=== PATIENT | male | born 1960 | race Caucasian/White ===

== ENCOUNTER 2023-10-07 08:31 | Outpatient (CLI) | payer MEDICARE, SELFPAY | END 2023-10-07 08:32 | disposition home or self-care (01) | LOC: NFLDREF 10-08 11:07 | PROVIDERS: PCP Family Medicine; Referring Provider Family Medicine; Visit Provider Family Medicine | DX: Z00.00 Encounter for general adult medical examination without abnormal findings (principal); E78.5 Hyperlipidemia, unspecified; Z12.5 Encounter for screening for malignant neoplasm of prostate; R53.83 Other fatigue | CPT/HCPCS: 80053; 80061; G0103 ==

== ENCOUNTER 2024-01-20 10:40 | Outpatient (CLI) | payer MEDICARE, SELFPAY ==
--- OUTSIDE RECORDS SUMMARY | 2024-01-20 10:43 | XMS_ITS | Clinical Summary ---
Author Name Unknown Organization [facility] Address [address] [place] [address] Care Team Providers Care Certified Retinal Angiographer Name Role Phone Unavailable Primary Care Provider Unavailabl e Source Comments Patient records contain information from all sites at [facility]. For routine questions regarding patient records, call [phone] during business hours, M-F 8:00 AM - 5:00 PM Central Time. Record requests for emergency care only can be directed to [phone] at any time.[facility] Allergies No known active allergies Medications Medication Sig Dispensed Refills Start Date End Date Status simvastatin (ZOCOR) 40 mg tablet Take 40 mg by mouth daily. 07/19/2016 Active triamterene (DYRENIUM) 100 mg capsule Take 100 mg by mouth daily. 07/19/2016 Active zolpidem (AMBIEN) 10 mg tablet 0.5 tablet (5mg) at bedtime 45 tablet 1 01/14/2019 Active Active Problems Problem Noted Date Diagnosed Date Meniere's Disease Bilateral 12/07/2018 Apnea Sleep Obstructive 12/07/2018 Family History Medical History Relation Name Comments Cataracts Mother Relation Name Status Comments Mother Social History Tobacco Use Types Packs/Day Years Used Date Smoking Tobacco: Former Cigarettes Q uit: 01/13/1994 Smokeless Tobacco: Never Comments:Quit 35 years ago Nutrition Answer Date Recorded Nutrition: EVOO Fat Source Unknown 12/07 Nutrition: Servings of Fruits/Vegetables per Day Not on file 12/07/2020 Dental Answer Date Recorded Dental: Regular Dentist Unknown 12/08/19 21 Sex and Gender Information Value Date Recorded Sex Assigned at Male 01/09/2019 5:11 AM CDT Gender Identity Male 01/09/2019 5:11 AM CDT Sexual Orientation Straight 01/09/2019 5: 11 AM CDT Last Filed Vital Signs Vital Sign Reading Time Taken Comments Blood Pressure 140/62 01/13/2019 3:49 PM CDT Pulse 63 01/13/2019 3:49 PM CDT Temperature - - Respiratory Rate - - Oxygen Saturation - - Inhaled Oxygen Concentration - - Weight 96.6 kg (212 lb 15.4 oz) 01/13/2019 3:49 PM CDT shoes on Height 174.9 cm (5' 8.86) 01/13/2019 3:49 PM CD T shoes on Body Mass Index 31.58 01/13/2019 3:49 PM CDT Plan of Treatment Health Maintenance Due Date Last Done Comments Abdominal Aortic Aneurysm (A AA) Screen 1958 CT Colonography 1958 Cologuard 1958 Colonoscopy 1958 Colorectal Cancer Screening 1958 FIT 1958 Fasting Glucose for Diabetes Screening 1960 HIV Screening 1958 Hepatitis C Screening 1958 Zoster Vaccines (2 of 3) 10/16/2015 08/21/2015 Depression Screening (Annual PHQ-2) 10/06/2023 Fall Risk Screen (Annual) 2023 Pneumococcal vaccine (65+ ye ars) (1 of 1 - PCV) 2023 DTaP,Tdap,and Td Vaccines (3 - Td or Tdap) 03/23/2030 03/23/2020, 12/17/2010 COVID-19 Vaccine Completed 10/09/2023, 09/2022, 11/09/2021, Additional history exists Influenza Vaccine Completed 10/09/2023, , 07/19/2021, Additional history exists
--- OUTSIDE RECORDS SUMMARY | 2024-01-20 10:43 | XMS_ITS ---
Author Name Unknown Organization [facility] Address [address] [place] [address] Care Team Providers Care Pack Out Operator Name Role Phone Unavailable Unavailable Unavailable Surgery Details Not on file Complications Check Surgery Details section. Procedure Estimated Blood Loss Check Surgery Details section. Procedure Findings Check Surgery Details section. Procedure Specimens Taken Check Surgery Details section.
--- OUTSIDE RECORDS SUMMARY | 2024-01-20 10:43 | XMS_ITS | Clinical Summary ---
Author Name Unknown Organization [facility] Address [place], [place] [address] Care Team Providers Care Thermometer Tester Name Role Phone Adalberto Hartley MD Primary Care Provider [phone] Allergies No known active allergies Medications Medication Sig Dispensed Refills Start Date End Date Status triamterene (DYRENIUM) 100 mg capsule Take 1 capsule by mouth 2 times daily. 0 07/19/2016 Active simvastatin (ZOCOR) 40 mg tablet Take 1 tablet by mouth at bedtime. 0 07/19/2016 Active aspirin chewable 81 mg chewable tablet Take 1 tablet by mouth once daily with a meal. 0 07/19/2016 Active Active Problems Problem Noted Date Diagnosed Date Right knee pain 07/19/2016 Iliotibial band tendonitis of right side 016 Social History Tobacco Use Types Packs/Day Years Used Date Smoking Tobacco: Never Alcohol Use Standard Drinks/Week Comments Yes 0 (1 standard drink = 0.6 oz pur e alcohol) 4 per week Sex and Gender Information Value Date Recorded Sex Assigned at Not on file Gender Identity Not on file Sexual Orientation Not on file Obstetrics History Plan of Treatment Health Maintenance Due Date Last Done Comments Tdap 1969 Depression screening for age 12+ 1970 HIV for age 15-65 1973 BMI (ht and wt on same day) for age 18+ 1976 Hepatitis C screening for age 18-79 1976 Tetanus booster 1978 Colonoscopy through age 75 2003 Lipids for age 45-75 2003 Zoster (shingles) series for age 50+ (1 of 2) 10/12/19 09 COVID-19 vaccine series ( - 2022-24 season) 3 Pneumococcal series for age 65+ (1 of 1 - PCV) 024 Influenza for age 65+ 06/06/2024 Care Teams Thermometer Tester Relationship Specialty Start Date End Date Adalberto Hartley MD PCP - General Family Practice 06/18/16
--- OUTSIDE RECORDS SUMMARY | 2024-01-20 10:43 | XMS_ITS | Referral Summary ---
Author Name Unknown Organization [facility] Address [address] [place] [address] Care Team Providers Care Bag Presser Name Role Phone Unavailable Primary Care Provider Unavailabl e Source Comments Patient records contain information from all sites at [facility]. For routine questions regarding patient records, call [phone] during business hours, M-F 8:00 AM - 5:00 PM Central Time. Record requests for emergency care only can be directed to [phone] at any time.[facility] Allergies No known active allergies [...] Disease Bilateral 12/07/2018 Apnea Sleep Obstructive 12/07/2018 Social History Tobacco Use Types Packs/Day Years [...] 01/13/2019 3:49 PM CDT Plan of Treatment Not on file
== END 2024-01-20 10:41 | disposition home or self-care (01) ==
LOC: NFLDREF 10:41
PROVIDERS: PCP Family Medicine; Visit Provider Family Medicine
DX: Z01.818 Encounter for other preprocedural examination (principal)
CPT/HCPCS: 80048

== ENCOUNTER 2024-01-26 09:16 | Day surgery (SDC) | payer MEDICARE, SELFPAY ==
[2024-01-26] VITALS (7 sets, daily range): BP systolic 108–147; BP diastolic 71–88; PULSE 57–65; RESP 16; TEMP 36.3–37.2; O2SAT 96–97; BMI 30.2
--- OUTSIDE RECORDS SUMMARY | 2024-01-26 09:19 | XMS_ITS | Referral Summary ---
Author Name Unknown Organization [facility] Address [address] [place] [address] Care Team Providers Care Family Practitioner Name Role Phone Unavailable Primary Care Provider Unavailabl e Source Comments Patient records contain information from all sites at [facility]. For routine questions regarding patient records, call [phone] during business hours, M-F 8:00 AM - 5:00 PM Central Time. Record requests for emergency care only can be directed to [phone] at any time.[facility] Allergies No known active allergies Medications Medication [...]
--- OUTSIDE RECORDS SUMMARY | 2024-01-26 09:19 | XMS_ITS ---
Author Name Unknown Organization [facility] Address [address] [place] [address] Care Team Providers Care House Cleaner Supervisor Name Role Phone Unavailable Unavailable Unavailable Surgery Details Not on file Complications Check Surgery Details section. Procedure Estimated Blood Loss Check Surgery Details section. Procedure Findings Check Surgery Details section. Procedure Specimens Taken Check Surgery Details section.
--- OUTSIDE RECORDS SUMMARY | 2024-01-26 09:19 | XMS_ITS | Clinical Summary ---
Author Name Unknown Organization [facility] Address [place], [place] [address] Care Team Providers Care Adult Psychiatrist Name Role Phone Adalberto Hartley MD Primary Care Provider [phone] Allergies No known active allergies Medications Medication [...] Influenza for age 65+ 06/06/2024 Care Teams Adult Psychiatrist Relationship Specialty Start Date End Date Adalberto Hartley MD PCP - General Family Practice 06/18/16
--- OUTSIDE RECORDS SUMMARY | 2024-01-26 09:19 | XMS_ITS | Clinical Summary ---
Author Name Unknown Organization [facility] Address [address] [place] [address] Care Team Providers Care Cooker Loader Name Role Phone Unavailable Primary Care Provider Unavailabl e Source Comments Patient records contain information from all sites at [facility]. For routine questions regarding patient records, call [phone] during business hours, M-F 8:00 AM - 5:00 PM Central Time. Record requests for emergency care only can be directed to [phone] at any time.[facility] Allergies No known active allergies Medications [...] ars) (1 of 1 - PCV) 2023 COVID-19 Vaccine (6 - 2022-2 4 season) 2024 10/09/2023, 07/17/2022, 11/09/2021, Additional history exists DTaP,Tdap,and Td Vaccines (3 - Td or Tdap) 03/23/2030 03/23/2020, 12/17/2010 Influenza Vaccine Completed 10/09/2023, , 07/19/2021, Additional history exists
[2024-01-26] MEDS: fentaNYL 100 MCG/2 ML inj IVP (09:22)
[2024-01-26] MEDS: MIDAZOLAM HCL 1 MG/ML inj IVP (09:22)
[2024-01-26] MEDS: LACTATED RINGERS 1000 ML 1,000 ML 100 ML IV (09:25)
[2024-01-26] MEDS: SODIUM CHLORIDE 0.9 % (FLUSH) 10 ML SYRINGE IVF (09:53)
--- NOTE | 2024-01-26 10:06 | W.PM.H&PU ---
History & Physical Update History & Physical Update H&P Reviewed and patient assessed: No changes noted
--- NOTE | 2024-01-26 11:12 | SUR.PREOP ---
TIME?OUT:?1108 PT/RN/MDA?VERIFICATION?OF?SURGICAL?SITE,?PROCEDURE,?AND?CONSENT OBTAINED?PRIOR?TO?INVASIVE?PROCEDURE.
--- NOTE | 2024-01-26 12:33 | PM.ORPRC ---
Procedure Note Date of procedure: 01/26/24 Procedure: PREOPERATIVE DIAGNOSIS: 1. Left thumb ulnar collateral ligament tear, chronic, with substantial instability POSTOPERATIVE DIAGNOSIS: 1. Left thumb ulnar collateral ligament tear, chronic, with substantial instability PROCEDURE: 1. Left thumb ulnar collateral ligament reconstruction with allograft and internal brace SURGEON: Gianfranco Rosario M.D. TRENCH DIGGING MACHINE OPERATOR: Willard VIRK. Of note, an assistant account manager was critical for this case to aid in patient positioning, knee manipulation, instrument exchange, and closure. ANESTHESIA: Regional block plus MAC EBL: 2ml IMPLANTS: Arthrex 3.5 mm fork tipped short peek SwiveLock suture anchor (x2) with internal brace and gracilis allograft. Allograft started at 3 x 150 mm. We tapered this down to 2 mm in diameter and utilized a much shorter segment for length. TOURNIQUET: 30 minutes at 215 torr COMPLICATIONS: None evident INDICATIONS: The patient is a pleasant 63-year-old male who has experienced left thumb injury 07/2023. This resulted in significant radial deviation of the thumb at the MCP joint. Since, he treated non operatively but found he continues to have gross instability and dysfunction of the thumb with pinching gripping squeezing type tasks. Clinical exam showed gross absence of the thumb MCP joint UCL. As such, surgery was indicated for reconstruction. FINDINGS: Significant scar immediately deep from the skin all way down to the joint itself. There is no clear identifiable UCL ligament but rather significant scar tissue. The articular surfaces of the metacarpal head and the base of the proximal phalanx looked healthy. DESCRIPTION OF PROCEDURE: After a thorough discussion of risks, benefits, and alternatives, the patient was brought to the operating room and placed upon the operating table. Induction of anesthesia was undertaken as previously noted. 2g iv Ancef was administered within 1 hr of incision preoperatively. Appropriate time-out was performed identifying proper patient, site, and procedure. The left upper extremity was prepped and draped in the appropriate sterile fashion using ChloraPrep. The limb was exsanguinated and tourniquet inflated. A longitudinal incision was made centered over the ulnar side of the thumb MCP joint. Sharp incision through skin and allowed us to identify significant scar tissue. We mobilized this as much as possible to seek any crossing neurologic structures. None were clearly identified. The abductor aponeurosis was sharply incised with a 15 blade approximately 2 mm off from the extensor mechanism. This allowed a cuff for later repair. The deeper ulnar collateral ligament was substantially scarred to surrounding tissue and not clearly identifiable. This tissue was excised and the metacarpal head and proximal phalanx base were better clearly identified. The patient did not have a palmaris longus. When discussing the potential for FCR slip, he declined an rather chosen allograft. The allograft was thawed and measured. At the start at 3 mm, we excise this down to 2 mm in diameter. The distal end was whip stitched and dunked into the hole at the base of the proximal phalanx from the thumb with the forked tip peek SwiveLock suture anchor along with a suture tape utilized for internal brace purposes. The hole was approximately 3 mm from the joint surface and 3 mm from the volar surface. The metacarpal head hole was then drilled obliquely approximately 7 mm from the joint surface and more 3 mm from the dorsal surface. The other end of the allograft along with a 2 SutureTape tails were dunked while the thumb was held in approximately 30? of flexion at the MCP joint and neutral rotation along with neutral alignment/adduction. Excellent security to the graft and suture tapes was encountered. The tails were then cut. The thumb was stressed and found to be stable with radial deviation. Reasonable thumb MCP joint range of motion was achieved as well. Thorough irrigation normal saline was performed. Closure performed with 3-0 Vicryl for the abductor aponeurosis, and 4-0 Monocryl for subcuticular closure. Tourniquet was deflated, dressings were applied, and a thumb spica splint was applied. Patient was woken per Anesthesia transferred recovery room in stable condition. PLAN: 1. Nonweightbearing left upper extremity. 2. Ice, acetominophen and/or ibuprofen, and oxycodone for pain as needed. 3. Finger range of motion as tolerated. 4. Maintain splint until 1st visit with occupational therapist/hand therapist. They will switch it for a removable, Velcro type of splint. 5. Follow-up PA visit approximately 7-10 days. Follow-up with me in approximately 6 weeks.
--- NOTE | 2024-01-26 13:01 | W.ANESCHARGE ---
Anesthesia Charges Start Date/Time Anesthesia Start Date: 01/26/24 Anesthesia Start Time: 11:27 Stop Date/Time Anesthesia Stop Date: 01/26/24 Anesthesia Stop Time: 13:06
--- NOTE | 2024-01-26 13:02 | W.PM.NB ---
Nerve Block Nerve Block Time Seen by Provider: 11:11 Date Seen: 01/26/24 Type of block requested by surgeon for post-operative analgesia: axillary Side: left Time out performed: Yes Verification of patient name: Yes Verification of date of : Yes Site marking: site marked Name of person performing procedure: Rudy Continuous monitoring Was continuous monitoring of O2 sat, B/P, director of cardiac cath lab, recorded every 15 minutes?: Yes Procedure Checklist: sterile prep, needles and gloves Ultrasound guided. Images saved: Yes Medications given in 5ml increments after negative aspiration: Ropivicaine %: 0.5 mL: 30 Needle gauge: 22 Patient tolerated procedure well: Yes Additional comments: Needle noted adjacent to nerve Block Charges Block Charge (with Pro Fee): Brachial Plexus Use of Ultrasound Machine for Block: Yes- US Guidance/pain block
--- NOTE | 2024-01-26 13:15 | W.ANESCHARGE ---
Anesthesia Charges Start Date/Time Anesthesia Start Date: 01/26/24 Anesthesia Start Time: 11:27 Stop Date/Time Anesthesia Stop Date: 01/26/24 Anesthesia Stop Time: 13:06
== END 2024-01-26 14:01 | disposition home or self-care (01) ==
LOC: OR 09:17
PROVIDERS: PCP Family Medicine; Visit Provider Orthopaedic Surgery Sports Medicine
PROC: (CPT 25000; principal; 2024-01-26 11:15)
DX: S63.642A Sprain of metacarpophalangeal joint of left thumb, initial encounter (principal); M25.342 Other instability, left hand; G89.18 Other acute postprocedural pain
CPT/HCPCS: 26541; 01810; 64415; 76942; C1713; C1762; J1100; J2250; J2405; J2704; J2795; J3010; J7120

== ENCOUNTER 2024-03-08 07:01 | Day surgery (SDC) | payer MEDICARE, SELFPAY ==
--- OUTSIDE RECORDS SUMMARY | 2024-03-08 07:05 | XMS_ITS ---
Author Organization [facility] Address [address] [place] [address] Care Team Providers Care Verifying Specialist Name Role Phone Unavailable Unavailable Unavailable Surgery Details Not on file Complications Check Surgery Details section. Procedure Estimated Blood Loss Check Surgery Details section. Procedure Findings Check Surgery Details section. Procedure Specimens Taken Check Surgery Details section.
--- OUTSIDE RECORDS SUMMARY | 2024-03-08 07:05 | XMS_ITS | Clinical Summary ---
Author Organization [facility] Address [address] [place] [address] Care Team Providers Care Assembler Utility Buildings Name Role Phone Unavailable Primary Care Provider Unavailabl e Source Comments Patient records contain information from all sites at [facility]. For routine questions regarding patient records, call [phone] during business hours, M-F 8:00 AM - 5:00 PM Central Time. Record requests for emergency care only can be directed to [phone] at any time.[facility] Allergies No known active allergies Medications [...]
--- OUTSIDE RECORDS SUMMARY | 2024-03-08 07:05 | XMS_ITS | Clinical Summary ---
Author Organization [facility] Address [place], [place] [address] Care Team Providers Care Windshield Installer Name Role Phone Adalberto Hartley MD Primary Care Provider [phone] Allergies No known active allergies Medications Medication [...] Influenza for age 65+ 06/06/2024 Care Teams Windshield Installer Relationship Specialty Start Date End Date Adalberto Hartley MD PCP - General Family Practice 06/18/16
--- OUTSIDE RECORDS SUMMARY | 2024-03-08 07:05 | XMS_ITS | Referral Summary ---
Author Organization [facility] Address [address] [place] [address] Care Team Providers Care Euclid Operator Name Role Phone Unavailable Primary Care Provider Unavailabl e Source Comments Patient records contain information from all sites at [facility]. For routine questions regarding patient records, call [phone] during business hours, M-F 8:00 AM - 5:00 PM Central Time. Record requests for emergency care only can be directed to [phone] at any time.[facility] Allergies No known active allergies [...]
[2024-03-08 07:18] VITALS: BP 112/72; PULSE 62; RESP 16; TEMP 36.8; O2SAT 99
[2024-03-08 07:21] VITALS: BMI 30.2
--- NOTE | 2024-03-08 07:39 | W.PM.H&PU ---
History & Physical Update History & Physical Update H&P Reviewed and patient assessed: No changes noted
[2024-03-08] MEDS: LACTATED RINGERS 1000 ML 1,000 ML 100 ML IV (08:00)
--- NOTE | 2024-03-08 08:29 | SUR.PREOP ---
TIME?OUT:?0840 PT/RN/MDA?VERIFICATION?OF?SURGICAL?SITE,?PROCEDURE,?AND?CONSENT OBTAINED?PRIOR?TO?INVASIVE?PROCEDURE.
[2024-03-08] MEDS: MIDAZOLAM HCL 1 MG/ML inj IVP (08:44)
[2024-03-08] MEDS: fentaNYL 100 MCG/2 ML inj IVP (08:44)
[2024-03-08 08:45] VITALS: BP 140/83; PULSE 58; RESP 16; O2SAT 99
[2024-03-08 08:50] VITALS: BP 136/76; PULSE 58; RESP 16; O2SAT 99
[2024-03-08] MEDS: CEFAZOLIN 2 GM in 0.9 % SODIUM CHLORIDE Mini-bag 100 ML IVPB (09:22)
--- NOTE | 2024-03-08 09:37 | P.NB_ITS ---
Nerve Block Nerve Block Time Seen by Provider: 08:47 Date Seen: 03/08/24 Type of block requested by surgeon for post-operative analgesia: axillary Side: left Time out performed: Yes Verification of patient name: Yes Verification of date of : Yes Site marking: site marked Name of person performing procedure: Rudy Continuous monitoring Was continuous monitoring of O2 sat, B/P, alarm security or surveillance monitor, recorded every 15 minutes?: Yes Procedure Checklist: sterile prep, needles and gloves Ultrasound guided. Images saved: Yes Medications given in 5ml increments after negative aspiration: Ropivicaine %: 0.5 mL: 30 Needle gauge: 22 Patient tolerated procedure well: Yes Additional comments: Needle noted adjacent to nerve Block Charges Block Charge (with Pro Fee): Brachial Plexus Use of Ultrasound Machine for Block: Yes- US Guidance/pain block
--- NOTE | 2024-03-08 10:32 | P.ORPRC_ITS ---
Procedure Note Date of procedure: 03/08/24 Procedure: PREOPERATIVE DIAGNOSIS: 1. Left thumb ulnar collateral ligament reconstruction failure/retear POSTOPERATIVE DIAGNOSIS: 1. Left thumb ulnar collateral ligament reconstruction failure/anchor failure PROCEDURE: 1. Left thumb ulnar collateral ligament revision reconstruction SURGEON: Gianfranco Rosario M.D. LABOR TRAINING MANAGER: Willard VIRK; Shahram Guillory PA-C. Of note, an [employer] assistant manager was critical for this case to aid in patient positioning, knee manipulation, instrument exchange, and closure. ANESTHESIA: Regional block plus MAC EBL: 5ml IMPLANTS: Arthrex 4 x 10 mm BioComposite tenodesis anchor. TOURNIQUET: 60 minutes at 225 torr COMPLICATIONS: None evident INDICATIONS: The patient is a pleasant 63-year-old male who has experienced left thumb injury 07/2023. He underwent original reconstruction with allograft and internal brace on 01/26/2024. Unfortunately, upon follow-up at the 6 week chris his thumb was found to be resting in a radially deviated position. Radiograph showed clear instability with subluxation of the thumb MCP joint. Given this, we had a thorough discussion of various choices and indeed he elected to proceed with revision reconstruction. We anticipated the need for a new allograft in case the previous allograft had torn or was too small or too short. FINDINGS: Retained anchor still with a solid fixation in the proximal phalanx base with an intact allograft and internal brace at that anchor. The anchor on the MCP joint had pulled out. We retrieved both the anchor body itself and the fork tip eyelet. This was all deep to some scar tissue that was already starting to heal with the allograft. However, the thumb MCP joint was clearly unstable and radially deviated position. It was correctable to neutral and thus a revision reconstruction was felt to be prudent. While initially we were anticipating the need for a revision allograft, acknowledging that the previous allograft may have torn, been to frail, or knot secured properly, but as we have obtained the visualization and tested the tissue, it was felt that the previous allograft was still of good quality, good size, and good length. Therefore, while a new allograft was being prepared on the back table with whip stitching to eventually pass over a metallic button on the far cortex, we aborted that technique and instead utilized a larger tenodesis screw in the failed metacarpal head with good security to the original allograft and internal brace. No signs of infection were encountered, but cultures were obtained of the bone tunnel none the less. DESCRIPTION OF PROCEDURE: After a thorough discussion of risks, benefits, and alternatives, the patient was brought to the operating room and placed upon the operating table. Induction of anesthesia was undertaken as previously noted. 2g iv Ancef was administered within 1 hr of incision preoperatively. Appropriate time-out was performed identifying proper patient, site, and procedure. The left upper extremity was prepped and draped in the appropriate sterile fashion using ChloraPrep. The limb was exsanguinated and tourniquet inflated. The previous longitudinal incision was made centered over the ulnar side of the thumb MCP joint. Sharp incision through skin and allowed us to identify significant scar tissue. We mobilized this as much as possible to seek any crossing neurologic structures. None were clearly identified. The abductor aponeurosis was sharply incised with a 15 blade approximately 2 mm off from the extensor mechanism. This allowed a cuff for later repair. The previous allograft tissue was identified and the metacarpal head anchor body was seen to have pulled out of its tunnel. We removed this. We also identified the fork tip eyelet which also was removed. The graft and the internal brace suture tape was still visible and felt to have good tissue quality. Initially, we were thinking of using a metallic button on the far cortex of the metacarpal head to allow us to tension a new allograft, but given the quality fixation into the proximal phalanx base, we elected to use the current tissue and internal brace sutures. Therefore, these were whipstitched with a 2-0 FiberLoop and the internal brace sutures incorporated with the allograft. These were brought through a full tunnel on the metacarpal head to allow us to tension properly. They were then fixed/secured with a 4 x 10 mm BioComposite tenodesis screw. Excellent security to the allograft was felt to be achieved. The thumb was fixed in approximately 30? of MCP joint flexion, neutral rotation, and neutral radial/ulnar deviation. We ensured that the thumb MCP joint had appropriate motion, and had excellent stability with radial deviation stress. The anchor body appeared to be stable. Even attempting to toggle the anchor itself was moving the entire bone without any toggle within the tunnel. The tails were then cut. Thorough irrigation normal saline was performed. Closure performed with 3-0 Vicryl for the abductor aponeurosis, and 4-0 Monocryl for subcuticular closure. Tourniquet was deflated, dressings were applied, and a thumb spica splint was applied. Patient was woken per Anesthesia transferred recovery room in stable condition. PLAN: 1. Nonweightbearing left upper extremity. 2. Ice, acetominophen and/or ibuprofen, and oxycodone for pain as needed. 3. Finger range of motion as tolerated. 4. Maintain splint until 1st visit then apply thumb spica cast. Follow up with me at approximately 3.5 weeks from surgery. Anticipate cast removal at that time and have him bring in his Orthoplast splint during that visit so that he can go into that removable splint during the 3.5 week chris. 5. Follow-up PA visit approximately 7-10 days. Follow-up with me in approximately 3.5 weeks.
[2024-03-08 11:02] VITALS: BP 133/87; PULSE 62; RESP 16; TEMP 36.6; O2SAT 94
--- NOTE | 2024-03-08 11:10 | W.ANESCHARGE ---
Anesthesia Charges Start Date/Time Anesthesia Start Date: 03/08/24 Anesthesia Start Time: 09:01 Stop Date/Time Anesthesia Stop Date: 03/08/24 Anesthesia Stop Time: 11:04
[2024-03-08 11:20] VITALS: BP 134/90; PULSE 66; RESP 16; O2SAT 93
== END 2024-03-08 11:50 | disposition home or self-care (01) ==
PROVIDERS: PCP Family Medicine; Visit Provider Orthopaedic Surgery Sports Medicine
PROC: (CPT 26055; principal; 2024-03-08 08:45)
DX: T84.220A Displacement of internal fixation device of bones of hand and fingers, initial encounter (principal); S63.642A Sprain of metacarpophalangeal joint of left thumb, initial encounter; G89.18 Other acute postprocedural pain
CPT/HCPCS: 26541; 01810; 64415; 76942; 87070; 87075; 87186; 87205; A4580; C1713; C1762; J0690; J1100; J2250; J2704; J2795; J3010; J7120

== ENCOUNTER 2024-03-23 15:00 | Outpatient (RCR) | payer MEDICARE, SELFPAY ==
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
== END 2024-07-21 23:59 | disposition home or self-care (01) ==
PROVIDERS: PCP Family Medicine; Visit Provider Orthopaedic Surgery Sports Medicine
DX: S63.642A Sprain of metacarpophalangeal joint of left thumb, initial encounter (principal); Z98.890 Other specified postprocedural states; M79.641 Pain in right hand; Z74.09 Other reduced mobility; R53.1 Weakness; Z51.89 Encounter for other specified aftercare
CPT/HCPCS: 97140; 97165; 97535; L3913

== ENCOUNTER 2024-12-16 08:45 | Outpatient (CLI) | payer MEDICARE, SELFPAY | END 2024-12-16 08:46 | disposition home or self-care (01) | LOC: NFLDREF 12-20 01:18 | PROVIDERS: PCP Family Medicine; Referring Provider Family Medicine; Visit Provider Family Medicine | DX: E78.5 Hyperlipidemia, unspecified (principal); Z12.5 Encounter for screening for malignant neoplasm of prostate | CPT/HCPCS: 80053; 80061; G0103 ==

== ENCOUNTER 2024-12-30 14:11 | Outpatient (CLI) | payer MEDICARE, SELFPAY ==
--- NOTE | 2024-12-30 14:30 | CRLHL7_ITS ---
For Patients: As a result of the 21st Century Cures Act, medical imaging exams and procedure reports are released immediately into your electronic medical record. You may view this report before your referring provider. If you have questions, please contact your health care provider. Indication: HEADACHES, FAMILY HX OF BRAIN TUMOR Technique: Noncontrast sagittal T1, axial FLAIR, T2 turbo spine echo, and diffusion weighted images. Supplemental post contrast T1 weighted axial and coronal sequences are provided after administration of 20 cc Dotarem gadolinium-based IV contrast. Comparison: No prior studies available for comparison at this institution. Findings: The ventricles, sulci and gyri are normal size, shape and contour for age. The midline structures are centrally located with no evidence of shift. There are no suspicious intra or extra-axial fluid collections. No evidence of restricted diffusion to suggest acute ischemia. Scattered foci of T2 prolongation in the supratentorial white matter are nonspecific. The pituitary gland, optic chiasm, pineal gland, and cerebellar tonsils are unremarkable. Expected flow voids in the cavernous carotids and basilar artery. No abnormal contrast enhancement involving the brain parenchyma, meninges, calvarium or skull base. Mild mucosal thickening along the calvert of the maxillary sinuses. No pathologic susceptibility artifacts. Mild mucosal thickening in the maxillary sinuses and ethmoid air cells. Right-sided cataract surgery changes. Impression: 1. No acute intracranial abnormalities. 2. Few scattered foci of T2 prolongation in the supratentorial white matter are nonspecific. Differential considerations include sequela of migraine headaches, prior inflammation, and chronic small vessel disease. 3. No pathologic enhancement. 4. Mild mucosal thickening in the maxillary sinuses and ethmoid air cells. Dictated by Alonzo Brewer MD @ 12/30/2024 4:43:06 PM (Electronically Signed)
== END 2024-12-30 14:12 | disposition home or self-care (01) ==
LOC: MRI 14:11
PROVIDERS: PCP Family Medicine; Visit Provider Family Medicine
DX: R51.9 Headache, unspecified (principal); J32.0 Chronic maxillary sinusitis; G89.29 Other chronic pain
CPT/HCPCS: 70553; A9575

== ENCOUNTER 2025-01-07 08:02 | Outpatient (CLI) | payer MEDICARE, SELFPAY ==
--- NOTE | 2025-01-07 08:15 | CRLHL7_ITS ---
For Patients: As a result of the Century Cures Act, medical imaging exams and procedure reports are released immediately into your electronic medical record. You may view this report before your referring provider. If you have questions, please contact your health care provider. Technique: Single contrast timed barium esophagram performed. 200 cc barium ingested orally in less than 15 seconds. Fluoroscopy time 49 seconds. Indication: Dysphagia with gastric erosions Comparison: None. Findings: 1 minute post ingestion: Barium column measures 11.9 cm with esophageal diameter of 2.3 cm. 2 minutes post ingestion: Barium column measures 8.2 cm with esophageal diameter 2.4 cm. 5 minutes post ingestion, barium column measures 9.5 cm with esophageal diameter 2.0 cm. Impression: Delayed esophageal transit detailed above. Dictated by Alonzo Patel MD @ 01/07/2025 11:40:48 AM (Electronically Signed)
== END 2025-01-07 08:03 | disposition home or self-care (01) ==
LOC: RAD 08:03
PROVIDERS: PCP Family Medicine; Visit Provider Internal Medicine
DX: R13.10 Dysphagia, unspecified (principal)
CPT/HCPCS: 74220

== ENCOUNTER 2025-03-17 09:41 | Outpatient (CLI) | payer MEDICARE, SELFPAY | END 2025-03-17 09:42 | disposition home or self-care (01) | LOC: NFLDREF 09:46 | PROVIDERS: PCP Family Medicine; Visit Provider Family Medicine | DX: Z01.818 Encounter for other preprocedural examination (principal) | CPT/HCPCS: 80048 ==

== ENCOUNTER 2025-03-29 09:13 | Outpatient (CLI) | payer MEDICARE, SELFPAY ==
--- NOTE | 2025-03-29 09:15 | CRLHL7_ITS ---
For Patients: As a result of the Cures Act, medical imaging exams and procedure reports are released immediately into your electronic medical record. You may view this report before your referring provider. If you have questions, please contact your health care provider. Examination: US abdominal aorta Indication: Abdominal aortic aneurysm screening. Technique: Elias scale and color Doppler images of the aorta and common iliac arteries are obtained. Comparison: None Findings: Proximal aorta: 2.7 x 2.7 cm Mid aorta: 2.1 x 2.1 cm Distal aorta: 2.0 x 2.0 cm Right common iliac artery: 1.4 x 1.4 cm Left common iliac artery: 1.3 x 1.4 cm Impression: No abdominal aortic aneurysm. Dictated by Alonzo Patel MD @ 03/29/2025 10:43:09 AM (Electronically Signed)
--- OUTSIDE RECORDS SUMMARY | 2025-03-30 01:00 | XMS_ITS | Clinical Summary ---
Author Organization [employer] [facility] Address [address] [place] [id number] Care Team Providers Care Grinding Operator Name Role Phone Adalberto Hartley MD Primary Care Provider [phone] Allergies No known active allergies Medications triamterene (DYRENIUM) 100 mg capsule Take 1 [...] Iliotibial band tendonitis of right side 016 Encounters Date Type Department Care Team Description 03/10/2025 Telephone [facility] [address] [place] [phone] Ely Alvares MD 03/08/2025 12:30 PM CDT Education [facility] [address] [phone] Education 03/08/2025 Travel 03/04/2025 Travel 03/03/2025 8:30 AM CDT Office Visit [facility] [address] [phone] Ely Alvares MD Difficulty Swallowing 03/03/2025 Telephone [facility] [address] [place] [phone] Ely Alvares MD RDC Care Coordination 03/03/2025 Travel 02/26/2025 Travel 02/18/2025 Telephone [facility] [address] [phone] Trey Solomon MD RDC Referral (Chart Prep) 02/18/2025 Transcribe Orders [facility] [address] [phone] Ely Alvares MD from Last 3 Months Social History Tobacco Use Types Packs/Day Years Used Date Smoking Tobacco: Never Alcohol Use Standard Drinks/Week Comments Yes 0 (1 standard drink = 0.6 oz pur e alcohol) 4 per week Sex and Gender Information Value Date Recorded Sex Assigned at Not on file 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 Gender Identity Not on file Sexual Orientation Not on file Obstetrics History Last Filed Vital Signs Vital Sign Reading Time Taken Comments Blood Pressure 162/88 03/03/2025 8:34 AM CDT Pulse 60 03/03/2025 8:34 AM CDT Temperature - - Respiratory Rate - - Oxygen Saturation 95% 03/03/2025 8:34 AM CDT Inhaled Oxygen Concentration - - Weight 90.7 kg (200 lb) 03/03/2025 8:34 AM CDT Height 172.7 cm (5' 8) 03/03/2025 8:34 AM CDT Body Mass Index 30.41 03/03/2025 8:34 AM CDT Plan of Treatment Upcoming Encounters Date Type Department Care Team (Latest Contact Info) Description 04/05/2025 2:07 PM CDT Hospital Encounter [facility] [address] [place] [address] Ely Alvares MD [address] [phone] 04/05/2025 2:07 PM CDT - 04/05/2025 4:14 PM CDT Surgery [facility] [address] [place] [address] Ely Alvares MD [address] [address] PERORAL ENDOSCOPIC MYOTOMY 04/06/2025 1:20 PM CDT Phone Office Visit [facility] [address] [phone] Lore Sanabria PA [address] [address] Scheduled Procedures Name Priority Associated Diagnoses Date/Ti me PERORAL ENDOSCOPIC MYOTOMY Tier 2 Achalasia 04/05/2025 2:07 PM CDT Health Maintenance Due Date Last Done Comments Tdap 1969 Depression screening for age 12+ 1970 Hepatitis C screening for age 18-79 1976 Tetanus booster 1978 Colonoscopy through age 75 2003 Lipids for age 45-75 2003 Pneumococcal series for age 50+ (1 of 1 - PCV) 2008 Zoster (shingles) series for age 50+ (1 of 2) 2008 Medicare Wellness for age 65+ 2023 Influenza Vaccine (Season Ended) 2025 COVID-19 vaccine series ( season) 2025 12/21/2024, 10/09/2023, 07/17/2022, Additional history exists BMI (ht and wt on same day) for age 18+ 03/03/2026 03/03/2025 RSV vaccine for adults or (1 - 1-dose 75+ series) 2033 Hepatitis B series for 19+ Aged Out N o longer eligible based on patient's age to complete this topic Procedures Procedure Name Priority Date/Time Associated Diagnosis Comments SCAN CORRESP-LABORATORY RESULTS 03/17/2025 11:41 AM CDT from Last 3 Months Results * SCAN CORRESP-LABORATORY RESULTS (03/17/2025 11:41 AM CDT) Narrative 03/17/2025 11:41 AM CDT Ordered by an unspecified provider. us Other Clinical Staff OTHER Final Resul t from Last 3 Months Insurance [facility] MEDICARE ADVANTAGE MR Care Teams Grinding Operator Relationship Specialty Start Date End Date Adalberto Hartley MD PCP - General Family Practice 06/18/16
--- OUTSIDE RECORDS SUMMARY | 2025-03-30 01:00 | XMS_ITS | Clinical Summary ---
Author Organization [facility] Address [address] [place] [address] Care Team Providers Care Agile Developer Name Role Phone Unavailable Primary Care Provider Unavailabl e Source Comments Patient records contain information from all sites at [facility]. For routine questions regarding patient records, call [phone] during business hours, M-F 8:00 AM - 5:00 PM Central Time. 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 Gender Identity Male 01/09/2019 5:11 AM CDT [...] Date Last Done Comments Abdominal Aortic Aneurysm (AAA) Screen 1958 CT Colonography 1958 Cologuard 1958 Colonoscopy 1958 Colorectal Cancer Screening 1958 FIT 1958 Fasting Glucose for Diabetes Screening 1958 Hepatitis C Screening 1958 Pneumococcal vaccine (50+ years) (1 of 1 - PCV) 2008 Zoster Vaccines (2 of 3) 10/16/2015 08/21/2015 COVID-19 Vaccine ( - season) 2024 10/09/2023, 07/17/2022, 11/09/2021, Additional history exists Influenza Vaccine (#1) 2024 , 07/17/2022, 07/19/2021, Additional history exists Depression Screening (Annual PHQ-2) 10/06/2024 Fall Risk Screen (Annual) 10/06/2024 DTaP,Tdap,and Td Vaccines (3 - Td or Tdap) 03/23/2030 03/23/2020, 12/17/2010 IPV Vaccines Aged Out No longer eligi ble based on patient's age to complete this topic
== END 2025-03-29 09:14 | disposition home or self-care (01) ==
LOC: US 09:14
PROVIDERS: PCP Family Medicine; Visit Provider Family Medicine
DX: Z13.6 Encounter for screening for cardiovascular disorders (principal)
CPT/HCPCS: 76706

== ENCOUNTER 2025-09-22 11:35 | Outpatient (CLI) | payer MEDICARE, SELFPAY ==
--- NOTE | 2025-09-22 12:32 | P.ANES_ITS ---
Anesthesia Charges Start Date/Time Anesthesia Start Date: 09/22/25 Anesthesia Start Time: 12:04 Stop Date/Time Anesthesia Stop Date: 09/22/25 Anesthesia Stop Time: 12:28 Coding CPT Codes CPT Codes: PAULA LWR INTST NDSC NOS - 82831 ([id number]) P2 - PATIENT W/MILD SYST DISEASE, QK - ETL PROGRAMMER 2-4 CNCRNT ANES PROC
--- NOTE | 2025-09-22 12:32 | W.ANESCHARGE ---
Anesthesia Charges Start Date/Time Anesthesia Start Date: 09/22/25 Anesthesia Start Time: 12:04 Stop Date/Time Anesthesia Stop Date: 09/22/25 Anesthesia Stop Time: 12:28 Coding CPT Codes CPT Codes: PAULA LWR INTST NDSC NOS - 97308 ([id number]) P2 - PATIENT W/MILD SYST DISEASE, QK - TARIFF INSPECTOR 2-4 CNCRNT ANES PROC
--- NOTE | 2025-09-22 14:27 | P.ANES_ITS ---
Anesthesia Charges Start Date/Time Anesthesia Start Date: 09/22/25 Anesthesia Start Time: 12:04 Stop Date/Time Anesthesia Stop Date: 09/22/25 Anesthesia Stop Time: 12:28 Coding CPT Codes CPT Codes: PAULA LWR INTST NDSC NOS - [id number] ([id number]) P2 - PATIENT W/MILD SYST DISEASE, QK - TOOL ANALYST 2-4 CNCRNT ANES PROC, QX - BROOMCORN PRESS FEEDER SVC W/ MD MED DIRECTION
--- NOTE | 2025-09-22 14:27 | W.ANESCHARGE ---
Anesthesia Charges Start Date/Time Anesthesia Start Date: 09/22/25 Anesthesia Start Time: 12:04 Stop Date/Time Anesthesia Stop Date: 09/22/25 Anesthesia Stop Time: 12:28 Coding CPT Codes CPT Codes: PAULA LWR INTST NDSC NOS - [id number] ([id number]) P2 - PATIENT W/MILD SYST DISEASE, QK - HUMIDIFIER MAINTENANCE WORKER 2-4 CNCRNT ANES PROC, QX - FLOOR PLAN ADJUSTER SVC W/ MD MED DIRECTION
== END 2025-09-22 11:36 | disposition home or self-care (01) ==
LOC: OP CLINIC 11:36
PROVIDERS: PCP Family Medicine; Visit Provider Surgery
DX: D12.2 Benign neoplasm of ascending colon (principal); D12.3 Benign neoplasm of transverse colon; D12.5 Benign neoplasm of sigmoid colon; Z86.0100 Personal history of colon polyps, unspecified
CPT/HCPCS: 00811; 45385; J2704